=== PATIENT | female | born 1970 | race Caucasian/White ===

== ENCOUNTER → 2016-11-27 | Outpatient (CLI) | payer OTHER ==
--- NOTE | 2016-11-27 17:06 | MA ---
Screening Digital Mammogram Clinical Indications: Routine screening. Technique: Standard cephalocaudal and mediolateral oblique projections were obtained. This examinat ion was processed by the [employer] computer aided detection system. Comparison: July 12, 2013; November 05, 2011. Breast density: D; The breasts are extremely dense, which lowers the sensitivity of mammography. Findings: CAD was reviewed. Within the upper outer left breast, there is a possible increasing nodul e versus overlapping breast parenchymal tissue. No additional masses are seen within either breast. T here are no significant clusters of microcalcifications. The axilla are clear. Impression: Possible developing nodule versus overlapping breast parenchymal tissue upper outer left breast. Recommendation: Ultrasound is recommended for further characterization. Additional imaging evaluation on the left is needed. BI-RADS 0. [facility] will send a result letter to the patient. Negative mammography should not preclude additional workup of a clinically suspicious finding. The patient's information is entered into a reminder system with a target due date for her next mammo gram.
== END ==
LOC: BRMIMAGING 12:56
DX: Z12.31 Encounter for screening mammogram for malignant neoplasm of breast (principal)
CPT/HCPCS: G0202

== ENCOUNTER → 2016-12-09 | Outpatient (CLI) | payer OTHER ==
--- NOTE | 2016-12-09 09:59 | US ---
Diagnostic Left Breast Ultrasound History: Asymmetry on mammograms. Comparison: Mammograms November 27, 2016, July 12, 2013, November 05, 2011. Technique: Limited grayscale and Doppler ultrasound in the region of asymmetry on mammograms is perfo rmed. Real-time sonography is performed by the radiologist. Findings: There is a circumscribed hypoechoic 1.4 x 0.7 x 1.2 cm structure at 1:00 5 cm from the nipp le with parallel orientation corresponding to the palpable finding. There is an adjacent lobulated hy poechoic 1.2 x 0.9 x 0.6 cm structure with associated coarse calcification, also with parallel orient ation. Scattered simple cysts are present. 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 BI-RADS 3: Probably Beka ign Findings. Recommendation: Follow up ultrasound in 6 months. The options of ultrasound follow up, surgical excis ion or ultrasound-guided biopsy were discussed with the patient, who elected to proceed with serial u ltrasound follow up. [facility] will send a result letter to the patient.
== END ==
LOC: BRMIMAGING 09:24
DX: R92.8 Other abnormal and inconclusive findings on diagnostic imaging of breast (principal)
CPT/HCPCS: 76641-PO

== ENCOUNTER → 2017-06-09 | Outpatient (CLI) | payer OTHER | LOC: BRMIMAGING 09:13 | PROVIDERS: ATTEND Internal Medicine | DX: R92.8 Other abnormal and inconclusive findings on diagnostic imaging of breast (principal) | CPT/HCPCS: 76641-PO ==

== ENCOUNTER → 2017-12-16 | Outpatient (CLI) | payer OTHER | LOC: BRMIMAGING 08:58 | PROVIDERS: ATTEND Internal Medicine | DX: Z09 Encounter for follow-up examination after completed treatment for conditions other than malignant neoplasm (principal); R92.8 Other abnormal and inconclusive findings on diagnostic imaging of breast | CPT/HCPCS: 76641-PO ==

== ENCOUNTER → 2018-07-27 | Outpatient (CLI) | payer OTHER | LOC: BRMIMAGING 10:09 | PROVIDERS: ATTEND Internal Medicine | DX: R92.8 Other abnormal and inconclusive findings on diagnostic imaging of breast (principal) | CPT/HCPCS: 76641-PO ==

== ENCOUNTER → 2018-12-07 | Outpatient (CLI) | payer OTHER | LOC: BRMIMAGING 08:24 | PROVIDERS: ATTEND Internal Medicine | DX: Z09 Encounter for follow-up examination after completed treatment for conditions other than malignant neoplasm (principal); N63.20 Unspecified lump in the left breast, unspecified quadrant; N60.01 Solitary cyst of right breast | CPT/HCPCS: 76641-PO ==